=== PATIENT | female | born 1990 | race Caucasian/White ===

== ENCOUNTER 2025-04-04 07:44 | Outpatient (CLI) | payer BC, SELFPAY ==
--- OUTSIDE RECORDS SUMMARY | 2025-04-04 07:47 | XMS_ITS | Clinical Summary ---
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 Active docusate sodium (COLACE) 100 MG capsule Take 1 capsule by mouth 2 (Two) Times a Day As Needed for Constipation . 60 capsule 10/20/2022 9:50 AM EDT 10/20/2022 Active hydrOXYzine (ATARAX) 25 MG tablet Take 1 tablet by mouth Every 6 (Six) Hours As Needed for Itching or Anxiety. 60 tablet 10/20/2022 9:50 AM EDT 10/20/2022 Active ibuprofen (ADVIL,MOTRIN) 600 MG tablet Take 1 tablet by mouth Every 6 (Six) Hours As Needed for Mild Pain. 60 tablet 10/20/2022 9:50 AM EDT 10/20/2022 Active labetalol (NORMODYNE) 200 MG tablet Take 1 tablet by mouth Every 8 (Eight) Hours. 90 tablet 10/20/2022 9:50 AM EDT 10/20/2022 Active Active Problems Problem Noted Date Diagnosed Date S/P section 10/16/2022 Class 3 obesity 10/16/2022 Resolved Problems Problem Noted Date Diagnosed Date Resolved Date Term 10/16/2022 10/16/2022 Social History Tobacco Use Types Packs/Day Years Used Date Smoking Tobacco: Never Passive Smoke Exposure: Never Smokeless Tobacco: Never Tobacco Cessation:Counseling Given: Not Answered Mona Depression Scale Answer Date Recorded Retired Mona Depression Score 0 10/16/2022 Retired EPD Scale: Thought of Harming Self Unrec ognized value 10/16/2022 Abuse Screen Answer Date Recorded Unsafe at Home or Work/School Not on file Feels Threatened by Someone? Not on file Does Anyone Keep You from Co ntacting Others or Doint Things Outside the Home? Not on file 10/27/2023 Physical Sign of Abuse Present Not on file 0 10/27/2023 Housing Stability Answer Date Recorded Current Living Arrangements Not on file 04/12 Potentially Unsafe Housing Conditions Not on brando e 04/24/2023 Family and Community Support Answer Eran e Recorded Help with Day-to-Day Activities Not on file 04/24/2023 Lonely or Isolated Not on file 04/24/2023 Employment Answer Date Recorded Do you want help finding or keeping work or a sanya b? Not on file 04/24/2023 Disabilities Answer Date Recorded Concentrating, Remembering, or Making Decisions Difficulty Not on file 04/24/2023 Doing Errands Independently Difficulty Not on fi le 04/24/2023 Education Answer Date Recorded Help with school or training? Not on file Preferred Language Not on file 04/24/2023 Comments No Sex and Gender Information Value Date Recorded Sex Assigned at Not on file Legal Sex Female 3:58 PM EDT Gender Identity Not on file Sexual Orientation Not on file Last Filed Vital Signs Vital Sign Reading Time Taken Comments Blood Pressure 141/71 10/20/2022 7:23 AM EDT Pulse 79 10/20/2022 7:23 AM EDT Temperature 37 C (98.6 F) 10/20/2022 7:23 AM EDT Respiratory Rate 16 10/20/2022 7:23 AM EDT Oxygen Saturation 99% 10/16/2022 9:03 PM EDT Inhaled Oxygen Concentration - - Weight 120 kg (265 lb) 10/16/2022 2:39 PM EDT Height 165.1 cm (5' 5 ) 10/16/2022 2:39 PM EDT Body Mass Index 44.1 10/16/2022 2:39 PM EDT Plan of Treatment Health Maintenance Due Date Last Done Comments Annual Gynecologic Pelvic an d Breast Exam 1988 TDAP/TD VACCINES (1 - Tdap) 2007 ANNUAL PHYSICAL 10/07/2022 INFLUENZA VACCINE 02/10/2025 05/09/2022 HEPATITIS C SCREENING Completed 04/11/2022 Pneumococcal Vaccine 0-49 Aged Out No longer eligible based on patient's age to complete this topic Medical Devices Implanted Type Area Apn Device Identifier Shelf Expiration Date Model / Serial / Lot Hemost Abs Surgicel Pwdr 3gm - [id number] Implanted:Qty : 1 on 10/16/2022 by Luisa Womack MD at [facility] Implant N/A: Abdomen [employer] 01/10/2024 [id number] / / [id number] Procedures Procedure Name Priority Date/Time Associated Diagnosis Comments HEPATITIS C ANTIBODY Routine 04/11/2022 4:07 PM EDT 12 weeks gestation of from Last 3 Months or Most Recently Relevant to Health Maintenance Results * Hepatitis C Antibody (04/11/2022 4:07 PM EDT) Hepatitis C Ab Non-Reacti ve Non-Reacti ve 04/12/2022 12:08 AM EDT [facility] Blood Venipuncture / Unknown 04/11/2022 4:07 PM EDT 04/11/2022 4:25 PM EDT Narrative [facility] - 04/12/2022 12:08 AM EDT Results may be falsely decreased if patient taking Biotin. us Sanjana Zaman MD LAB BLOOD ORDERABLES Final Res ult [facility]
[address] [place] [address], from Last 3 Months or Most Recently Relevant to Health Maintenance Insurance [employer] Advance Directives * CPR (Attempt to Resuscitate) (Latest Code Status on File) Date Activated Date Inactivated Comments 10/16/2022 11:44 PM 10/20/2022 1:33 PM Question Answer Comments Code Status (Patient has no pulse and is not breathing): CPR (Attempt to Resuscitate) Medical Interventions (Patie nt has pulse or is breathing): Full * CPR (Attempt to Resuscitate) Date Activated Date Inactivated Comments 10/16/2022 2:54 PM 10/16/2022 11:44 PM Question Answer Comments Code Status (Patient has no pulse and is not breathing): CPR (Attempt to Resuscitate) Medical Interventions (Patie nt has pulse or is breathing): Full Support Release to patient: Routine Release Care Teams Assistant Field Hockey Coach Relationship Specialty Start Date End Date Provider, [place] [address] PCP - General 04/11/22
--- OUTSIDE RECORDS SUMMARY | 2025-04-04 07:47 | XMS_ITS | Patient Health Record ---
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 Diagnosis: Atypical squamous cells of undetermined significance. (ASC-US) A! AP results A! FINAL LABOR MEDIATOR CYTOLOGY REPORT DIAGNOSIS: Atypical squamous cells of undetermined significance. (ASC-US) Specimen Adequacy: Satisfactory for interpretation with endocervical/transforma tion zone component present. Pertinent Clinical History/History of Surgery: Not provided Collection Technique: Not provided Results of Last Pap: Not provided LMP: 01/25/25 Date of Last Pap: Not provided Specimen Source: Cervical/Endocervical Specimen Type: ThinPrep Other Gynecological Patient Information: Not provided Recommendation: Follow-up based on current clinical guidelines and/or clinical consideration. Screening note: This specimen has been analyzed by the ThinPrep Imaging System, an interactive computer system which assists the lab in screening of ThinPrep Pap Test slides. Following imaging, the slide was reviewed by a Traffic Maintenance Officer and/or Pathologist. Negative Educational Note: The pap screening test aids in the detection of premalignant and malignant states of the cervix. False positive and negative results may occur. It is not a diagnostic test. If abnormal cells are reported, follow-up based on current clinical guidelines and/or clinical consideration is recommended. Seamus Oliva MD Pathologist CPT Codes: 41878, 91945 ICD Codes: Z01.419, R87.610 HPV High-Risk Negative Negative Reason For Referral No Information Medications Medication SIG (Take, Route, Frequency, Duration) Notes Start Date End Date Status Lexapro 10 MG Tablet 1 tablet Orally Onc e a day; Duration: 30 days 12/22/2022 Active Ibuprofen 600 MG Tablet Oral; Duration: 15 Days Active hydroCHLOROthiazide 25 MG Tablet 1 tablet in the morning Orally Once a day; Duration: 30 day(s) 01/29/2024 Active busPIRone HCl 7.5 MG Tablet 1 tablet Ora lly Twice a day; Duration: 30 days 11/06/2022 Active Social History Sex Assigned At : Social History Observation Description Sex Assigned At Female Social History Sexual History: Social Info Question Answer Notes Sexual History Had sex in the past 12 months (vaginal, oral, or anal)? Yes Problems Problem Type SNOMED Code ICD Code Onset Dates Problem Status W/U Status Risk Notes Problem Urine test negative (183052609) Encounter for test with result negative (Z32.02) 021 Active confirmed Urine test negative Problem Body mass index 40+ - severely obese (354570815) Body mass index (BMI) of 40.1 to 44.9 in adult (Z68.41) Active confirmed Problem Abnormal cytological finding in specimen from female genital organ (338380756) Atypical cervical glandular cells (R87.619) Active confirmed Problem Abnormal cervical Papanicolaou smear with positive human papillomavirus deoxyribonucleic acid test (595905978) Abnormal Papanicolaou smear of cervix with positive human papilloma virus (HPV) test (R87.618) 021 Active confirmed Atypical glandular cells on cervical Papanicolaou smear Vital Signs Heart Rate 78 /min 02/01/2025 Oximetry 99 % 02/01/2025 Blood pressure diastolic 70 mm Hg 02/01/2025 Height 65 in 02/01/2025 Blood pressure systolic 120 mm Hg 02/01/2025 Weight 244.0 lbs 02/01/2025 BMI 40.6 kg/m2 02/01/2025 Encounters Encounter Location Date Provider Diagnosis [facility] [address] [place] [address] 01/24/2025 Elizabeth Bryan [facility] [address] [place] [address] 01/27/2025 Elizabeth Bryan [facility] [address] [place] [address] 02/01/2025 Elizabeth Bryan Sodium Methylate Operator exam without abnormal findings Z01.419 Assessments Encounter Date Diagnosis (ICD Code) Assessment Notes Treatment Notes Treatment Clinical Notes Section Notes 02/01/2025 Sodium Methylate Operator exam without abnormal findings (ICD-10 - Z01.419) Normal annual exam Pap obtained BSE encouraged Follow up annual exam or PRN Plan Of Treatment Pending Test Test Name Order Date Group B Strep by PCR 09/24/2022 Insurance Providers Payer Name Payer Address Payer Phone Subscriber Number Group Number Insured Name Patient Relationship to Insured Coverage Start Date Coverage End Date Tay GARCIA [address] [place] [address] [id number] Yenny Cortes Self - patient is the insured Medical (General) History Medical History History ICD Code Yeast infections Abnormal paps HPV Obesity anxiety Surgical History Surgery Date(Month/Year) Cholecystectomy 2015 2022 Hospitalization History Reason Date(Month/Year)
[2025-04-04 07:49] LABS: Microscopic, Urine URINE MICROSCOPIC (MICROSCOPIC)
[2025-04-04 08:08] LABS: Hematocrit 39.6 % (37.0-47.0); Hemoglobin 13.1 g/dL (12.2-16.2); Immature Granulocytes % 0.5 %; Mean Corpuscular HGB Conc 33.1 g/dL (31.8-35.4); Mean Corpuscular Hemoglobin 28.7 pg (27.0-31.2); Mean Corpuscular Volume 86.8 fl (81-99); Nucleated Red Blood Cells % 0 %; Platelet Count 336 K/mm3 (142-424); Red Blood Count 4.56 M/mm3 (4.20-5.40); Red Cell Distribution Width-SD 41.0 fL; White Blood Count 8.7 K/mm3 (4.8-10.8)
[2025-04-04 08:25] LABS: Albumin Level 4.0 g/dl (3.5-5.0); Chloride 101 mmol/L (98-107); Potassium 3.7 mmoL/L (3.5-5.1); Sodium 138 mmol/L (136-145)
[2025-04-04 08:27] LABS: Alanine Aminotransferase 15 U/L (12-78); Aspartate Amino Transferase 23 U/L (14-36); Blood Urea Nitrogen 10 mg/dl (7-17); Creatinine,Serum 0.70 mg/dl (0.52-1.04); Estimated Glomerular Filt Rate 94 ml/min (>60); GFR (African American) 114 ML/MIN (>60)
[2025-04-04 08:28] LABS: Albumin/Globulin Ratio 1.6 (1.1-1.8); Alkaline Phosphatase 74 U/L (38-126); Anion Gap 11.7 mEq/L (5-15); Bilirubin,Total 0.6 mg/dl (0.2-1.3); Calcium 9.2 mg/dl (8.4-10.2); Carbon Dioxide 29 mmol/L (22.0-30.0); Cholesterol 170 mg/dl (140-200); Globulin 2.5 g/dL (1.3-3.2); Glucose 106 mg/dl (74-100); Iron 78 ug/dL (37-170); Total Protein,Serum 6.5 g/dl (6.3-8.2); Triglycerides 111 mg/dl (30-150)
[2025-04-04 08:29] LABS: HDL Cholesterol 50 mg/dl (40-60)
[2025-04-04 08:43] LABS: Total Iron Binding Capacity 311 ug/dL (265-497)
[2025-04-04 08:44] LABS: 25-OH Vitamin D, Total 19.7 ng/mL (30-100)
[2025-04-04 08:45] LABS: Free T4 (Free Thyroxine) 1.01 ng/dl (0.78-2.19)
[2025-04-04 09:00] LABS: Thyroid Stimulating Hormone 1.69 uIU/mL (0.465-4.68)
[2025-04-04 09:04] LABS: Ferritin 19.1 ng/ml (6.24-137)
[2025-04-04 09:16] LABS: Hepatitis C Ab Qual. W/ RFX NEGATIVE (Negative)
[2025-04-04 09:34] LABS: Vitamin B12 266 pg/mL (239-931)
[2025-04-04 09:47] LABS: Hemoglobin A1C 5.2 % (4.0-6.0)
[2025-04-04 11:10] LABS: Color,Urine YELLOW (Yellow); Glucose,Urine (UA) Negative (Negative); Ketones,Urine TRACE (Negative); Leukocyte Esterase,Urine Negative (Negative); PH,Urine 6.0 (5.0-8.5); Protein,Urine Negative (Negative); Specific Gravity, Urine >= 1.030 (1.005-1.030); Urobilinogen,Urine 0.2 EU/dl (0.2)
[2025-04-04 11:56] LABS: Bilirubin,Urine 1+ (Negative)
[2025-04-04 12:06] LABS: Squamous Epithelial Cell,Urine Occasional #/hpf (0-5); WBC,Urine Occasional #/hpf (0-3)
== END 2025-04-04 23:59 | disposition home or self-care (01) ==
LOC: LAB 07:45
PROVIDERS: PCP Nurse Practitioner Family; Visit Provider Nurse Practitioner Family
DX: F41.9 Anxiety disorder, unspecified (principal); F32.A Depression, unspecified; I10 Essential (primary) hypertension; Z68.41 Body mass index [BMI] 40.0-44.9, adult; Z11.59 Encounter for screening for other viral diseases; Z11.4 Encounter for screening for human immunodeficiency virus [HIV]; Z13.220 Encounter for screening for lipoid disorders; Z13.29 Encounter for screening for other suspected endocrine disorder; Z13.21 Encounter for screening for nutritional disorder; E11.9 Type 2 diabetes mellitus without complications; G47.33 Obstructive sleep apnea (adult) (pediatric); R53.83 Other fatigue; R41.3 Other amnesia
CPT/HCPCS: 36415; 80053; 80061; 81001; 82306; 82607; 82728; 83036; 83540; 83550; 84156; 84439; 84443; 85025; 86376; 86803; 87086; 87389